=== PATIENT | male | born 1985 | race African-American/Black ===

== ENCOUNTER 2025-06-11 17:13 | Emergency (ER) | payer OTHER ==
[~2025-06-11] VITALS: Ht 172.7 cm; Wt 67.0 kg
[2025-06-11 17:28] VITALS: BP 105/42; PULSE 90; RESP 14; TEMP 98.4; O2SAT 98
[2025-06-11] MEDS: AZITHROMYCIN 500 MG TABLET PO ONE (20:50)
[2025-06-11] MEDS: CefTRIAXone SODIUM 1 GM/VIAL IM ONE (20:50)
[2025-06-11] MEDS: LIDOCAINE/PF 1% 2 ML VIAL IM ONE (20:50)
== END 2025-06-11 21:57 ==
LOC: EMS 17:13
DX: T74.21XA Adult sexual abuse, confirmed, initial encounter (principal); L29.9 Pruritus, unspecified; Z91.013 Allergy to seafood; Y92.89 Other specified places as the place of occurrence of the external cause
CPT/HCPCS: 99283; 87491; 87591; 96372; 87389; J0456; J0696; J3490